=== PATIENT | male | born 1940 | race Caucasian/White ===

== ENCOUNTER 2018-07-07 11:48 | Emergency (ER) | payer MEDICARE, BC ==
[~2018-07-07] VITALS: Ht 170.2 cm; Wt 77.1 kg
[2018-07-07] MEDS ORDERED: HYDROCODONE/APAP 5-325MG TABLET PO ONE (12:45)
[2018-07-07] MEDS ORDERED: HYDROCODONE/APAP 5-325MG TABLET ONE (12:50)
--- NOTE | 2018-07-07 13:00 | NUR ---
Patient discharged to home in stable conditon. Written and verbal after care instructions given. Patient verbalizes understanding of instructions. Pt left ER w/ steady gait accompained by .
[2018-07-07 13:02] VITALS: BP 129/80
== END 2018-07-07 13:02 | disposition home or self-care (01) ==
LOC: ER 11:48 → EDBD 11:48 → ER 13:02
DX: S52.532A Colles' fracture of left radius, initial encounter for closed fracture (principal); W01.0XXA Fall on same level from slipping, tripping and stumbling without subsequent striking against object, initial encounter; Y93.89 Activity, other specified; Y92.89 Other specified places as the place of occurrence of the external cause; Y99.8 Other external cause status
CPT/HCPCS: 73110; A4663